=== PATIENT | female | born 1955 | race Caucasian/White ===

== ENCOUNTER 2022-07-23 09:06 | Emergency (ER) | payer BC, MEDICAID ==
[~2022-07-23] VITALS: Ht 157.5 cm; Wt 88.0 kg
[2022-07-23 10:05] VITALS: BP_SYST 137
--- NOTE | 2022-07-23 10:05 | NUR ---
Patient triaged and placed in waiting room. VSS and patient appears in no acute distress at this time. Accompanied by SELF, awaiting available bed, and MD notified of need for MSE.
[2022-07-23 10:56] LABS: BILIRUBIN,URINE NEGATIVE (NEGATIVE); BLOOD, URINE NEGATIVE (NEGATIVE); CLARITY/URINE CLEAR (CLEAR); COLOR,URINE YELLOW (YELLOW); GLUCOSE,URINE NEGATIVE (NEGATIVE); KETONES,URINE NEGATIVE (NEGATIVE); LEUKOCYTE ESTERASE ,URINE NEGATIVE (NEGATIVE); NITRITE, URINE NEGATIVE (NEGATIVE); PROTEIN URINE NEGATIVE (NEGATIVE); UROBILINOGEN,URINE 0.2 (0.2-1.0)
--- NOTE | 2022-07-23 11:46 | NUR ---
Patient to ER [facility] to [facility] [place] for evaluation. Side rails up. Report given to DEREK NELSON.
--- NOTE | 2022-07-23 12:00 | NUR ---
Pt presents to the ER bib self CC ear ache. right side 05/13 Pt states fever 2 nights ago, afebrile currently. aaox4, skin intact denies SOB.
--- NOTE | 2022-07-23 12:10 | NUR ---
Placed in room 7 . Placed on order department supervisor, blood pressure machine and pulse oximeter. To gown for exam. Side rails up.
[2022-07-23] MEDS ORDERED: ONDANSETRON 4 MG ODT TAB PO ONE (12:15)
[2022-07-23] MEDS ORDERED: DIPHENHYDRAMINE INJ 50 MG/ML VIAL IM ONE (12:15)
[2022-07-23 12:28] LABS: BASOPHILS % (AUTO) 0.6 % (0.0-2.0); EOSINOPHILS # (AUTO) 0.1 K/uL (0.0-0.4); EOSINOPHILS % (AUTO) 1.1 % (0.0-4.0); HEMATOCRIT 35.6 % (36-48); HEMOGLOBIN 12.4 g/dL (12.0-16.0); LYMPHOCYTES # (AUTO) 1.3 K/uL (1.0-5.5); LYMPHOCYTES % (AUTO) 23.1 % (20.5-51.5); MEAN CORPUSCULAR HEMOGLOBIN 31 pg (27-31); MEAN CORPUSCULAR HGB CONC 35 % (32-36); MEAN CORPUSCULAR VOLUME 89 fL (79.0-98.0); MONOCYTES # (AUTO) 0.5 K/uL (0.0-1.0); MONOCYTES % (AUTO) 8.2 % (1.7-9.3); NEUTROPHILS # (AUTO) 3.7 K/uL (1.8-7.7); PLATELET COUNT (AUTO) 250 K/uL (130-430); RED BLOOD CELL COUNT(AUTO) 3.99 MIL/uL (4.2-6.2); RED CELL DISTRIBUTION WIDTH 13.8 % (9.0-15.0); WHITE BLOOD COUNT (AUTO) 5.5 K/uL (4.8-10.8)
[2022-07-23] MEDS ORDERED: cefTRIAXone 1 GM in D5W 50 ML IV ONE (12:30)
--- NOTE | 2022-07-23 12:30 | NUR ---
Pt bib self from home. CC Dizziness Pt is aaox4, skin intact, c/o EAR ache to right side.
[2022-07-23 13:07] LABS: CALCIUM 9.2 mg/dL (8.4-11.0); CREATININE 0.99 mg/dL (0.55-1.30); POTASSIUM 4.1 mmol/L (3.5-5.1)
[2022-07-23 13:13] LABS: ALBUMIN 3.6 g/dL (3.4-4.8); TOTAL BILIRUBIN 0.2 mg/dL (0.0-1.0)
--- NOTE | 2022-07-23 13:20 | NUR ---
ER at bedside examining patient.
[2022-07-23] MEDS ORDERED: cefTRIAXone 1 GM VIAL ONE (13:29)
[2022-07-23] MEDS ORDERED: MECL-261 PO (14:35)
[2022-07-23] MEDS ORDERED: ONDA-8 TL (14:35)
[2022-07-23] MEDS ORDERED: CEFU250T85 PO (14:35)
[2022-07-23 14:51] VITALS: BP_SYST 137
--- NOTE | 2022-07-23 14:55 | NUR ---
Patient given written and verbal discharge instructions and verbalizes understanding. ER MD discussed with patient the results and treatment provided. Patient in stable condition. ID arm band removed. Opportunity for questions provided and answered. Medication side effect fact sheet provided.
== END 2022-07-23 14:55 | disposition home or self-care (01) ==
LOC: SED 09:06
DX: H66.92 Otitis media, unspecified, left ear (principal); H81.12 Benign paroxysmal vertigo, left ear; R11.0 Nausea; I10 Essential (primary) hypertension; Z88.0 Allergy status to penicillin; Z79.899 Other long term (current) drug therapy
CPT/HCPCS: 99284; 96365; 80053; 85025; 36415; 93005; 81003; Q0162; J0696; J1200

== ENCOUNTER 2022-07-30 23:48 | Emergency (ER) | payer BC, MEDICAID ==
[~2022-07-30] VITALS: Ht 162.6 cm; Wt 90.7 kg
[~2022-07-30 23:48] MED LIST: CEFU250T85 PO; MECL-261 PO; ONDA-8 TL
[2022-07-31 00:13] VITALS: BP_SYST 149
--- NOTE | 2022-07-31 00:17 | NUR ---
PT HERE C/O HIGH BP AT HOME. PT STATED THAT HER BP EARLIER WAS ON 170'S AND 150'S. PT STATES THAT SHE IS LIGHTHEADED. DENIES BLURRY VISION.+LT EAR PAIN AND CONSTIPATION PMH:HTN PT AAOX4, NO SOB NOTED AND NAD. PENDING MD HERRON
[2022-07-31 01:11] LABS: ANION GAP 5 (5-15); CALCIUM 9.4 mg/dL (8.4-11.0); CHLORIDE 104 mmol/L (98-107); CREATININE 0.97 mg/dL (0.55-1.30); GLUCOSE 118 mg/dL (70-99); POTASSIUM 3.8 mmol/L (3.5-5.1); UREA NITROGEN, BLOOD 14 mg/dL (8-21)
[2022-07-31 01:15] LABS: RED CELL DISTRIBUTION WIDTH 13.2 % (9.0-15.0); WHITE BLOOD COUNT (AUTO) 9.1 K/uL (4.8-10.8)
[2022-07-31 01:17] LABS: GFR AFRICAN AMERICAN 73 mL/min (>90)
[2022-07-31 01:20] LABS: ALANINE AMINOTRANSFERASE 22 U/L (12-78); ALBUMIN 3.9 g/dL (3.4-4.8); ASPARTATE AMINOTRANSFERASE 15 U/L (10-37); TOTAL BILIRUBIN 0.5 mg/dL (0.0-1.0)
[2022-07-31 01:21] LABS: BASOPHILS % (AUTO) 0.4 % (0.0-2.0); EOSINOPHILS # (AUTO) 0.2 K/uL (0.0-0.4); HEMATOCRIT 35.4 % (36-48); HEMOGLOBIN 12.3 g/dL (12.0-16.0); LYMPHOCYTES # (AUTO) 1.8 K/uL (1.0-5.5); LYMPHOCYTES % (AUTO) 19.6 % (20.5-51.5); MEAN CORPUSCULAR HEMOGLOBIN 31 pg (27-31); MEAN CORPUSCULAR HGB CONC 35 % (32-36); MEAN CORPUSCULAR VOLUME 90 fL (79.0-98.0); MONOCYTES # (AUTO) 0.7 K/uL (0.0-1.0); MONOCYTES % (AUTO) 7.4 % (1.7-9.3); NEUTROPHILS # (AUTO) 6.4 K/uL (1.8-7.7); NEUTROPHILS % (AUTO) 70.6 % (40.0-70.0); PLATELET COUNT (AUTO) 318 K/uL (130-430); RED BLOOD CELL COUNT(AUTO) 3.94 MIL/uL (4.2-6.2)
--- NOTE | 2022-07-31 02:20 | NUR ---
DENIZ Conklin at bedside.
--- NOTE | 2022-07-31 03:22 | NUR ---
Patient to ER bed 7 to gown for evaluation. Side rails up. Report given to Deepthi GIMENEZ.
--- NOTE | 2022-07-31 03:25 | NUR ---
Received report from PERNELL Saenz; assuming care of patient at this time.
--- NOTE | 2022-07-31 03:30 | NUR ---
Patient A/Ox4, VSS, ambulatory, resp even and unlabored. Patient lying in bed with side rails raised and connected to monitor. Patient reports pain 0/10 at this time. Nad noted at this time.
--- NOTE | 2022-07-31 03:50 | NUR ---
Patient rest in bed with side rails raised. Patient requesting light in room to be turned off and states "I'm going to try to sleep a little bit." Nad noted at this time.
[2022-07-31 03:51] LABS: BILIRUBIN,URINE NEGATIVE (NEGATIVE); BLOOD, URINE NEGATIVE (NEGATIVE); CLARITY/URINE CLEAR (CLEAR); COLOR,URINE YELLOW (YELLOW); GLUCOSE,URINE NEGATIVE (NEGATIVE); KETONES,URINE NEGATIVE (NEGATIVE); LEUKOCYTE ESTERASE ,URINE NEGATIVE (NEGATIVE); NITRITE, URINE NEGATIVE (NEGATIVE); PROTEIN URINE NEGATIVE (NEGATIVE); UROBILINOGEN,URINE 0.2 (0.2-1.0)
[2022-07-31] MEDS ORDERED: DOCU-144 PO (04:08)
--- NOTE | 2022-07-31 04:17 | NUR ---
DC PT HOME AAOX4, NO SOB NOTED AND NAD. DC INSTRUCTION WERE GIVEN TO PT ALSO INSTRUCTED TO F/U WITH HER PCP. SHE VERBALIZED UNDERSTANDING
[2022-07-31 04:18] VITALS: BP_SYST 151
== END 2022-07-31 04:16 | disposition home or self-care (01) ==
LOC: SED 23:48
DX: R42 Dizziness and giddiness (principal); K59.00 Constipation, unspecified; R10.84 Generalized abdominal pain; R03.0 Elevated blood-pressure reading, without diagnosis of hypertension; Z88.0 Allergy status to penicillin; Z79.899 Other long term (current) drug therapy
CPT/HCPCS: 36415; 70450-TC; 71045; 76376; 80053; 81003; 83880; 84484; 85025; 93005; 99285